=== PATIENT | male | born 1990 | race African-American/Black ===

== ENCOUNTER 2021-10-19 15:22 | Emergency (ER) | payer BC, OTHER ==
[2021-10-19] MEDS ORDERED: Bupivacaine 0.25% HCL 30 ML VIAL ONE (16:04)
[2021-10-19] MEDS ORDERED: Ketorolac Tromethamine 30 MG/ML VIAL ONE (16:14)
== END 2021-10-19 16:22 | disposition home or self-care (01) ==
LOC: CSHERS 15:22
DX: K02.9 Dental caries, unspecified (principal)
CPT/HCPCS: 96372; 99282; J1885; S0020